=== PATIENT | male | born 1975 | race Caucasian/White ===

== ENCOUNTER 2019-04-09 16:54 | Emergency (ER) | payer OTHER, SELFPAY ==
[2019-04-09 17:43] LABS: Bilirubin Negative (Negative); Blood, Urine Negative (Negative); Clarity Clear (Clear); Glucose, Urine (Dipstick) Normal (Negative); Leukocyte Negative Leu/uL (Negative); Nitrite Negative (Negative); Protein, Urine (Dipstick) Negative (Neg-Trace); Urobilinogen Normal mg/dL (Less than 2)
[2019-04-09 17:53] LABS: Amphetamine Not Detected (NotDetected); Barbiturates Screen Not Detected (NotDetected); Benzodiazepine Screen Detected (NotDetected); Cocaine Metabolite Screen Detected (NotDetected); Medtox Control Line Valid? VALID (VALID); Medtox Reader # READER 4; Methadone Not Detected (NotDetected); Methamphetamine Not Detected (NotDetected); Opiate Screen Not Detected (NotDetected); Oxycodone Screen Not Detected (NotDetected); Phencyclidine (PCP) Not Detected (NotDetected); THC/Cannabinoid Screen Not Detected (NotDetected); Tricyclic Screen Not Detected (NotDetected)
[2019-04-09 17:59] LABS: #Basophils 0.1 thou/uL (0.0-0.2); #Eosinphils 0.1 thou/uL (0.0-0.7); #Lymphocytes 2.8 thou/uL (1.20-3.40); #Monocytes 0.7 thou/uL (0.11-0.59); #Neutrophils 10.8 thou/uL (1.40-6.50); %Basophils 0.9 % (0.0-1.0); %Eosinophils 0.5 % (0.0-10.0); %Lymphocytes 19.5 % (21.0-51.0); %Monocytes 4.5 % (0.0-10.0); %Neutrophils 74.7 % (42.0-75.0); Hemoglobin 19.2 g/dL (14.0-18.0); Mean Corpuscular HGB CONC 33.4 g/dL (32.0-36.0); Mean Corpuscular Hemoglobin 32.1 pg (27.0-31.0); Mean Corpuscular Volume 96.2 fL (78.0-98.0); Mean Platelet Volume 8.4 fL (7.4-10.4); Platelet Count 218 thou/uL (130-400); RBC Distribution Width 12.1 % (11.5-14.5); Red Blood Cell (RBC) Count 5.97 mill/uL (4.70-6.10); White Blood Cell (WBC) Count 14.4 thou/uL (4.8-10.8)
[2019-04-09 18:20] LABS: ALT (SGPT) 60 U/L (8-55); AST (SGOT) 88 U/L (5-34); Albumin 4.6 g/dL (3.5-5.0); Alkaline Phosphatase 56 U/L (40-110); Anion Gap 26 mmol/L (10-20); BUN (Urea Nitrogen) 15 mg/dL (8.9-20.6); Bilirubin, Total 0.7 mg/dL (0.2-1.2); Calc. Creatinine Clearance 0 mL/min (70-130); Calcium 9.8 mg/dL (7.8-10.44); Carbon Dioxide 19 mmol/L (22-29); Chloride 101 mmol/L (98-107); Estimated GFR-MDRD 69; Potassium 4.6 mmol/L (3.5-5.1); Protein, Total 7.6 g/dL (6.0-8.3); Sodium 141 mmol/L (136-145)
[2019-04-09 18:25] LABS: Acetaminophen Less than 6.0 mcg/mL (10.0-30.0); Alcohol 285 mg/dL (Less than 10); Lipase 30 U/L (8-78); Salicylate Less than 8.0 mg/dL (15.0-30.0)
--- NOTE | 2019-04-09 18:26 | CT ---
CT BRAIN NONCONTRAST: DATE: 04/09/2019 HISTORY: 44-year-old male status post seizure FINDINGS: There is no evidence of acute intra-axial or extra-axial hemorrhage. There is no midline shift or any other mass effect. There is no extra-axial fluid collection. The ventricles are normal in size and configuration. The tympanomastoid cavities, and the upper portions of the paranasal sinuses included in these images, are grossly clear. Calvarium is intact. IMPRESSION: Normal.
[2019-04-09 18:27] LABS: Glucose 47 mg/dL (70-105)
[2019-04-09] MEDS ORDERED: Nicotine 14 MG PATCH ONE (21:37)
[2019-04-09] MEDS ORDERED: Acetaminophen 500 MG TAB ONE (23:38)
[2019-04-10] MEDS ORDERED: Ibuprofen 200 MG TAB ONE (02:20)
[2019-04-10] MEDS ORDERED: Multivitamins, Adult 10 ML, Thiamine HCl 100 MG, Folic Acid 1 MG in Dextrose 5 %-0.45 %... IV SCH (09:00)
== END 2019-04-10 17:18 ==
LOC: EEVIPCON 16:54 → ERS 16:54
DX: F32.9 Major depressive disorder, single episode, unspecified (principal); F43.10 Post-traumatic stress disorder, unspecified; F10.129 Alcohol abuse with intoxication, unspecified; F17.210 Nicotine dependence, cigarettes, uncomplicated; Y90.8 Blood alcohol level of 240 mg/100 ml or more
CPT/HCPCS: 36415; 36416; 70450; 80053; 80306; 80307; 81003; 83690; 85025; 93005; 96361; 96365; 96366; J3411; J7042

== ENCOUNTER 2021-04-16 02:03 | Inpatient (IN) | payer OTHER ==
[~2021-04-16 02:03] MED LIST: Lorazepam 1 MG TAB PO PRN
[2021-04-16] MEDS ORDERED: Ondansetron PF 4 MG/2 ML Vial ONE (02:17)
[2021-04-16 02:18] LABS: #Basophils 0.1 thou/uL (0.0-0.2); #Eosinphils 0.1 thou/uL (0.0-0.7); #Lymphocytes 2.9 thou/uL (1.20-3.40); #Neutrophils 6.6 thou/uL (1.40-6.50); %Basophils 0.6 % (0.0-1.0); %Lymphocytes 27.3 % (21.0-51.0); %Monocytes 9.6 % (0.0-10.0); %Neutrophils 61.4 % (42.0-75.0); Hemoglobin 18.6 g/dL (14.0-18.0); Mean Corpuscular HGB CONC 34.4 g/dL (32.0-36.0); Mean Corpuscular Hemoglobin 32.7 pg (27.0-31.0); Mean Corpuscular Volume 95.3 fL (78.0-98.0); Mean Platelet Volume 7.4 fL (7.4-10.4); Platelet Count 224 thou/uL (130-400); RBC Distribution Width 12.7 % (11.5-14.5); Red Blood Cell (RBC) Count 5.69 mill/uL (4.70-6.10); White Blood Cell (WBC) Count 10.7 thou/uL (4.8-10.8)
[2021-04-16] MEDS ORDERED: Thiamine 100 MG TAB ONE (02:24)
[2021-04-16 02:47] LABS: Acetaminophen Less than 6.0 mcg/mL (10.0-30.0); Alcohol 291 mg/dL (Less than 10); Salicylate Less than 8.0 mg/dL (15.0-30.0)
[2021-04-16 03:01] LABS: ALT (SGPT) 110 U/L (8-55); AST (SGOT) 193 U/L (5-34); Albumin 4.2 g/dL (3.5-5.0); Alkaline Phosphatase 66 U/L (40-110); Anion Gap 24 mmol/L (10-20); BUN (Urea Nitrogen) 9 mg/dL (8.9-20.6); Bilirubin, Total 0.7 mg/dL (0.2-1.2); Calc. Creatinine Clearance 0 mL/min (70-130); Calcium 9.3 mg/dL (7.8-10.44); Carbon Dioxide 18 mmol/L (22-29); Chloride 98 mmol/L (98-107); Globulin 3.3 g/dL (2.4-3.5); Glucose 71 mg/dL (70-105); Protein, Total 7.5 g/dL (6.0-8.3); Sodium 136 mmol/L (136-145)
[2021-04-16 03:04] LABS: Actual Bicarbonate (HCO3v) 19 mEq/L (22-28); Analyzer IN Cardio ER; Base Excess -4.9 mEq/L (-2.0 to +3.0); Chloride (VBG) 98 mmol/L (98-106); Hemoglobin (Hb) 19.2 g/dL (13.2-17.3); Potassium (VBG) 4.05 mmol/L (3.70-5.30); Sodium 139.2 mmol/L (133-146); pH (venous) 7.37 (7.32-7.43)
[2021-04-16] MEDS ORDERED: Dextrose 50% Abboject 50 ML SYRINGE ONE (03:25)
[2021-04-16] MEDS ORDERED: Pantoprazole 40 MG VIAL ONE ×2 (03:44→10:33)
[2021-04-16] MEDS ORDERED: Acetaminophen 325 MG TAB PO PRN (04:00)
[2021-04-16] MEDS ORDERED: Electrolyte Replacement Protocol 1 EACH FS PRN (04:00)
[2021-04-16] MEDS ORDERED: Lorazepam 2 MG/ML VIAL IM PRN ×2 (04:00→08:09)
[2021-04-16] MEDS ORDERED: Ondansetron PF 4 MG/2 ML Vial IVP PRN ×2 (04:00→08:09)
[2021-04-16] MEDS ORDERED: Dextrose 5 % And 0.9 % NaCl 1,000 ML IV SCH (04:00)
[2021-04-16] MEDS ORDERED: Ondansetron ODT 4 MG TAB SL PRN (04:00)
[2021-04-16 04:13] LABS: Bilirubin Negative (Negative); Blood, Urine Negative (Negative); Clarity Clear (Clear); Glucose, Urine (Dipstick) Normal (Negative); Ketone, Urine 20 mg/dL (Negative); Leukocyte Negative Leu/uL (Negative); Nitrite Negative (Negative); Protein, Urine (Dipstick) 10 mg/dL (Neg-Trace); Specific Gravity, Urine 1.014 (1.002-1.036); Urobilinogen Normal mg/dL (Less than 2); pH, Urine 5.5 (5.0-9.0)
[2021-04-16 04:50] LABS: SARS-CoV-2 NAA Rapid Test Not Detected (NotDetected)
[2021-04-16] MEDS ORDERED: Lorazepam 1 MG TAB PO SCH (06:00)
[2021-04-16] MEDS ORDERED: Ondansetron ODT 4 MG TAB PO PRN (08:09)
[2021-04-16] MEDS ORDERED: Lorazepam 1 MG TAB PO PRN (08:09)
[2021-04-16] MEDS ORDERED: Bisacodyl 10 MG SUPP PR PRN (08:09)
[2021-04-16] MEDS ORDERED: Guaifenesin DM 100-10/5 ML UDCUP PO PRN (08:09)
[2021-04-16] MEDS ORDERED: Electrolyte Replacement Protocol 1 EACH FS SCH (08:15)
[2021-04-16] MEDS ORDERED: Electrolyte Replacement Protocol FS PRN (09:00)
[2021-04-16] MEDS ORDERED: Multivit, Therapeutic 1 TAB PO SCH (09:00)
[2021-04-16] MEDS ORDERED: Thiamine HCl 200 MG/2 ML VIAL SLOW IVP SCH ×2 (09:00)
[2021-04-16] MEDS ORDERED: Folic Acid 1 MG TAB PO SCH (09:00)
[2021-04-16] MEDS ORDERED: Iopamidol 370 76% 100 ML VIAL ONE (09:29)
[2021-04-16] MEDS ORDERED: Multivitamins, Adult 10 ML, Folic Acid 1 MG, Thiamine HCl 100 MG in Dextrose 5 %-0.45 %... IV SCH (09:45)
[2021-04-16] MEDS ORDERED: Magnesium 2 GM/50 ML 2 GM in Premix Bag 1 BAG IVPB SCH ×2 (10:00→23:00)
[2021-04-16] MEDS: Dextrose 5 %-0.45 % NaCl 1,000 ML IV SCH (10:15)
[2021-04-16] MEDS: Lorazepam 1 MG TAB PO SCH ×3 (10:15→21:09)
[2021-04-16] MEDS: Multivit, Therapeutic 1 TAB PO SCH (10:16)
[2021-04-16] MEDS: Nicotine 21 MG PATCH TD SCH (10:16)
[2021-04-16] MEDS: Pantoprazole 40 MG VIAL IVP SCH ×2 (10:16→21:10)
[2021-04-16] MEDS: Folic Acid 1 MG TAB PO SCH (10:16)
[2021-04-16] MEDS: Folic Acid 1 MG, Multivitamins, Adult 10 ML in Dextrose 5 %-0.45 % NaCl 1,000 ML IV SCH (10:18)
[2021-04-16] MEDS: Thiamine HCl 200 MG/2 ML VIAL SLOW IVP SCH (10:18)
[2021-04-16] MEDS ORDERED: Lorazepam 1 MG TAB ONE ×2 (10:33→14:37)
[2021-04-16] MEDS ORDERED: Magnesium 2 GM/50 ML BAG (IN WATER) ONE (10:33)
[2021-04-16] MEDS ORDERED: Folic Acid 1 MG TAB ONE (10:33)
[2021-04-16] MEDS: PHOS-NAK 1 PKT PACK PO SCH ×4 (10:39→23:57)
[2021-04-16 11:01] LABS: Syphilis Antibody Nonreactive (Nonreactive); Syphilis Antibody Index 0.04 S/CO (<1.00 Non-Reactive)
[2021-04-16 17:43] VITALS: BMI 27.3
[2021-04-16] MEDS ORDERED: FLU VACC QS2021-22(6MOS UP)/PF 60 MCG/0.5 ML SYRINGE IM ONE (18:00)
[2021-04-16 19:28] LABS: Anion Gap 15 mmol/L (10-20); BUN (Urea Nitrogen) 7 mg/dL (8.9-20.6); Calc. Creatinine Clearance 117 mL/min (70-130); Calcium 8.3 mg/dL (7.8-10.44); Carbon Dioxide 24 mmol/L (22-29); Chloride 101 mmol/L (98-107); Glucose 151 mg/dL (70-105); Potassium 3.5 mmol/L (3.5-5.1); Sodium 136 mmol/L (136-145)
[2021-04-16 19:38] LABS: Magnesium 1.9 mg/dL (1.6-2.6); Phosphorus 1.7 mg/dL (2.3-4.7)
[2021-04-17] MEDS: Lorazepam 1 MG TAB PO SCH ×4 (01:52→20:51)
[2021-04-17] MEDS ORDERED: Lorazepam 1 MG TAB PO PRN ×2 (04:00→08:08)
[2021-04-17] MEDS: Dextrose 5 %-0.45 % NaCl 1,000 ML IV SCH ×3 (04:03→15:26)
[2021-04-17] MEDS ORDERED: Lorazepam 1 MG TAB PO SCH (06:00)
[2021-04-17] MEDS: Folic Acid 1 MG TAB PO SCH (08:06)
[2021-04-17] MEDS: Nicotine 21 MG PATCH TD SCH (08:06)
[2021-04-17] MEDS: PHOS-NAK 1 PKT PACK PO SCH ×3 (08:06→20:51)
[2021-04-17] MEDS: Pantoprazole 40 MG VIAL IVP SCH ×2 (08:06→20:51)
[2021-04-17] MEDS: Multivit, Therapeutic 1 TAB PO SCH (08:06)
[2021-04-17] MEDS: Amlodipine 10 MG TAB PO SCH (09:12)
[2021-04-17] MEDS: chlordiazePOXIDE HCl 25 MG CAP PO SCH ×3 (10:00→20:51)
[2021-04-17] MEDS: Thiamine HCl 200 MG/2 ML VIAL SLOW IVP SCH (10:00)
[2021-04-17] MEDS: Lorazepam 2 MG/ML VIAL SLOW IVP PRN ×2 (12:22→17:49)
[2021-04-17] MEDS: Folic Acid 1 MG, Multivitamins, Adult 10 ML in Dextrose 5 %-0.45 % NaCl 1,000 ML IV SCH (12:51)
[2021-04-17] MEDS ORDERED: PROPOFOL 200 MG/20 ML VIAL ONE (15:01)
[2021-04-17] MEDS ORDERED: Lidocaine 1% PF 5 ML VIAL ONE (15:01)
[2021-04-17 17:12] LABS: ALT (SGPT) 112 U/L (8-55); AST (SGOT) 203 U/L (5-34); Albumin 3.6 g/dL (3.5-5.0); Alkaline Phosphatase 63 U/L (40-110); Anion Gap 12 mmol/L (10-20); BUN (Urea Nitrogen) 4 mg/dL (8.9-20.6); Bilirubin, Total 1.1 mg/dL (0.2-1.2); Calc. Creatinine Clearance 118 mL/min (70-130); Calcium 8.4 mg/dL (7.8-10.44); Carbon Dioxide 27 mmol/L (22-29); Chloride 101 mmol/L (98-107); Globulin 2.8 g/dL (2.4-3.5); Glucose 125 mg/dL (70-105); Phosphorus 2.2 mg/dL (2.3-4.7); Potassium 3.5 mmol/L (3.5-5.1); Protein, Total 6.4 g/dL (6.0-8.3); Sodium 136 mmol/L (136-145)
[2021-04-17 17:20] LABS: #Lymphocytes 0.8 thou/uL (1.20-3.40); #Monocytes 0.3 thou/uL (0.11-0.59); #Neutrophils 3.1 thou/uL (1.40-6.50); %Basophils 0.2 % (0.0-1.0); %Eosinophils 1.1 % (0.0-10.0); %Lymphocytes 19.7 % (21.0-51.0); %Monocytes 6.9 % (0.0-10.0); %Neutrophils 72.2 % (42.0-75.0); Hemoglobin 16.5 g/dL (14.0-18.0); Mean Corpuscular HGB CONC 34.9 g/dL (32.0-36.0); Mean Corpuscular Hemoglobin 33.9 pg (27.0-31.0); Mean Corpuscular Volume 97.1 fL (78.0-98.0); Mean Platelet Volume 7.3 fL (7.4-10.4); Platelet Count 102 thou/uL (130-400); RBC Distribution Width 12.5 % (11.5-14.5); Red Blood Cell (RBC) Count 4.87 mill/uL (4.70-6.10); White Blood Cell (WBC) Count 4.3 thou/uL (4.8-10.8)
[2021-04-17 17:21] LABS: Platelet Morphology Comment Appears Decreased; RBC Morphology Normal
[2021-04-18] MEDS: Lorazepam 2 MG/ML VIAL SLOW IVP PRN ×5 (00:08→23:58)
[2021-04-18] MEDS: Lorazepam 1 MG TAB PO SCH (02:45)
[2021-04-18] MEDS ORDERED: Lorazepam 1 MG TAB PO PRN ×2 (04:00→08:08)
[2021-04-18] MEDS ORDERED: Lorazepam 0.5 MG TAB PO SCH (06:00)
[2021-04-18] MEDS ORDERED: Potassium Chloride 20 MEQ TAB PO SCH (07:00)
[2021-04-18 07:34] LABS: #Lymphocytes 0.9 thou/uL (1.20-3.40); #Monocytes 0.4 thou/uL (0.11-0.59); #Neutrophils 2.2 thou/uL (1.40-6.50); %Basophils 0.7 % (0.0-1.0); %Eosinophils 1.2 % (0.0-10.0); %Lymphocytes 25.7 % (21.0-51.0); %Monocytes 11.1 % (0.0-10.0); %Neutrophils 61.3 % (42.0-75.0); Hemoglobin 15.5 g/dL (14.0-18.0); Mean Corpuscular HGB CONC 35.1 g/dL (32.0-36.0); Mean Corpuscular Hemoglobin 34.2 pg (27.0-31.0); Mean Corpuscular Volume 97.5 fL (78.0-98.0); Mean Platelet Volume 8.1 fL (7.4-10.4); Platelet Count 97 thou/uL (130-400); RBC Distribution Width 12.5 % (11.5-14.5); Red Blood Cell (RBC) Count 4.52 mill/uL (4.70-6.10); White Blood Cell (WBC) Count 3.5 thou/uL (4.8-10.8)
[2021-04-18 07:48] LABS: ALT (SGPT) 118 U/L (8-55); AST (SGOT) 200 U/L (5-34); Albumin 3.3 g/dL (3.5-5.0); Alkaline Phosphatase 65 U/L (40-110); Anion Gap 13 mmol/L (10-20); BUN (Urea Nitrogen) Less than 4 mg/dL (8.9-20.6); Bilirubin, Total 0.7 mg/dL (0.2-1.2); Calc. Creatinine Clearance 128 mL/min (70-130); Calcium 8.5 mg/dL (7.8-10.44); Carbon Dioxide 25 mmol/L (22-29); Chloride 103 mmol/L (98-107); Globulin 2.5 g/dL (2.4-3.5); Glucose 97 mg/dL (70-105); Potassium 3.5 mmol/L (3.5-5.1); Protein, Total 5.8 g/dL (6.0-8.3); Sodium 137 mmol/L (136-145)
[2021-04-18] MEDS: PHOS-NAK 1 PKT PACK PO SCH (08:46)
[2021-04-18] MEDS: Folic Acid 1 MG TAB PO SCH (08:47)
[2021-04-18] MEDS: Dextrose 5 %-0.45 % NaCl 1,000 ML IV SCH ×3 (08:48→20:13)
[2021-04-18] MEDS: Multivit, Therapeutic 1 TAB PO SCH (08:48)
[2021-04-18] MEDS: Pantoprazole 40 MG VIAL IVP SCH ×2 (08:48→20:10)
[2021-04-18] MEDS: Amlodipine 10 MG TAB PO SCH (08:48)
[2021-04-18] MEDS: Nicotine 21 MG PATCH TD SCH (08:48)
[2021-04-18] MEDS: Lorazepam 0.5 MG TAB PO SCH ×3 (08:48→20:11)
[2021-04-18] MEDS: chlordiazePOXIDE HCl 25 MG CAP PO SCH ×3 (09:44→20:18)
[2021-04-18] MEDS: Thiamine HCl 200 MG/2 ML VIAL SLOW IVP SCH (11:19)
[2021-04-18] MEDS: Folic Acid 1 MG, Multivitamins, Adult 10 ML in Dextrose 5 %-0.45 % NaCl 1,000 ML IV SCH (11:40)
[2021-04-18] MEDS: Acetaminophen 325 MG TAB PO PRN (23:57)
[2021-04-19] MEDS: Lorazepam 0.5 MG TAB PO SCH (02:42)
[2021-04-19] MEDS ORDERED: Lorazepam 0.5 MG TAB PO PRN ×2 (06:00→08:08)
[2021-04-19 07:08] LABS: #Basophils 0.1 thou/uL (0.0-0.2); #Eosinphils 0.1 thou/uL (0.0-0.7); #Lymphocytes 1.5 thou/uL (1.20-3.40); #Monocytes 0.5 thou/uL (0.11-0.59); #Neutrophils 3.9 thou/uL (1.40-6.50); %Lymphocytes 24.7 % (21.0-51.0); %Monocytes 7.5 % (0.0-10.0); %Neutrophils 64.8 % (42.0-75.0); Hemoglobin 16.1 g/dL (14.0-18.0); Mean Corpuscular HGB CONC 33.6 g/dL (32.0-36.0); Mean Corpuscular Hemoglobin 33.2 pg (27.0-31.0); Mean Corpuscular Volume 98.9 fL (78.0-98.0); Mean Platelet Volume 8.4 fL (7.4-10.4); Platelet Count 118 thou/uL (130-400); RBC Distribution Width 12.8 % (11.5-14.5); Red Blood Cell (RBC) Count 4.85 mill/uL (4.70-6.10)
[2021-04-19 07:22] LABS: ALT (SGPT) 152 U/L (8-55); AST (SGOT) 212 U/L (5-34); Albumin 3.5 g/dL (3.5-5.0); Alkaline Phosphatase 80 U/L (40-110); Anion Gap 12 mmol/L (10-20); BUN (Urea Nitrogen) 5 mg/dL (8.9-20.6); Bilirubin, Total 0.5 mg/dL (0.2-1.2); Calc. Creatinine Clearance 119 mL/min (70-130); Calcium 9.5 mg/dL (7.8-10.44); Carbon Dioxide 23 mmol/L (22-29); Chloride 106 mmol/L (98-107); Globulin 2.9 g/dL (2.4-3.5); Glucose 100 mg/dL (70-105); Potassium 3.7 mmol/L (3.5-5.1); Protein, Total 6.4 g/dL (6.0-8.3); Sodium 137 mmol/L (136-145)
[2021-04-19] MEDS: Dextrose 5 %-0.45 % NaCl 1,000 ML IV SCH ×2 (08:00→16:19)
[2021-04-19] MEDS: Pantoprazole 40 MG VIAL IVP SCH ×2 (08:51→21:29)
[2021-04-19] MEDS: Folic Acid 1 MG TAB PO SCH (08:51)
[2021-04-19] MEDS: Multivit, Therapeutic 1 TAB PO SCH (08:51)
[2021-04-19] MEDS: Nicotine 21 MG PATCH TD SCH (08:51)
[2021-04-19] MEDS: Amlodipine 10 MG TAB PO SCH (08:51)
[2021-04-19] MEDS: Thiamine 100 MG TAB PO SCH (08:51)
[2021-04-19] MEDS ORDERED: Thiamine 100 MG TAB PO SCH (09:00)
[2021-04-19] MEDS: chlordiazePOXIDE HCl 25 MG CAP PO SCH ×3 (09:39→21:29)
[2021-04-19] MEDS: Folic Acid 1 MG, Multivitamins, Adult 10 ML in Dextrose 5 %-0.45 % NaCl 1,000 ML IV SCH (10:07)
[2021-04-19] MEDS: Thiamine HCl 200 MG/2 ML VIAL SLOW IVP SCH (10:08)
[2021-04-19] MEDS: Acetaminophen 325 MG TAB PO PRN (21:29)
[2021-04-19 23:11] LABS: SARS-CoV-2 PCR by NAA Not Detected (NotDetected)
[2021-04-20 07:51] LABS: #Basophils 0.1 thou/uL (0.0-0.2); #Eosinphils 0.2 thou/uL (0.0-0.7); #Lymphocytes 1.6 thou/uL (1.20-3.40); #Monocytes 0.6 thou/uL (0.11-0.59); #Neutrophils 4.1 thou/uL (1.40-6.50); %Basophils 0.9 % (0.0-1.0); %Eosinophils 2.7 % (0.0-10.0); %Lymphocytes 24.2 % (21.0-51.0); %Monocytes 9.7 % (0.0-10.0); %Neutrophils 62.5 % (42.0-75.0); Mean Corpuscular HGB CONC 33.3 g/dL (32.0-36.0); Mean Corpuscular Hemoglobin 33.1 pg (27.0-31.0); Mean Corpuscular Volume 99.2 fL (78.0-98.0); Mean Platelet Volume 8.6 fL (7.4-10.4); Platelet Count 114 thou/uL (130-400); RBC Distribution Width 12.8 % (11.5-14.5); Red Blood Cell (RBC) Count 4.25 mill/uL (4.70-6.10); White Blood Cell (WBC) Count 6.5 thou/uL (4.8-10.8)
[2021-04-20 08:05] LABS: ALT (SGPT) 124 U/L (8-55); AST (SGOT) 132 U/L (5-34); Alkaline Phosphatase 57 U/L (40-110); Anion Gap 12 mmol/L (10-20); BUN (Urea Nitrogen) 9 mg/dL (8.9-20.6); Bilirubin, Total 0.4 mg/dL (0.2-1.2); Calc. Creatinine Clearance 118 mL/min (70-130); Calcium 8.7 mg/dL (7.8-10.44); Carbon Dioxide 25 mmol/L (22-29); Chloride 105 mmol/L (98-107); Globulin 2.3 g/dL (2.4-3.5); Glucose 94 mg/dL (70-105); Potassium 3.7 mmol/L (3.5-5.1); Protein, Total 5.3 g/dL (6.0-8.3); Sodium 138 mmol/L (136-145)
[2021-04-20] MEDS: Thiamine 100 MG TAB PO SCH (08:51)
[2021-04-20] MEDS: Multivit, Therapeutic 1 TAB PO SCH (08:51)
[2021-04-20] MEDS: Amlodipine 10 MG TAB PO SCH (08:51)
[2021-04-20] MEDS: Folic Acid 1 MG TAB PO SCH (08:51)
[2021-04-20] MEDS: Pantoprazole 40 MG VIAL IVP SCH ×2 (08:51→20:10)
[2021-04-20] MEDS: Nicotine 21 MG PATCH TD SCH (08:51)
[2021-04-20] MEDS: chlordiazePOXIDE HCl 25 MG CAP PO SCH ×3 (09:33→20:10)
[2021-04-21 08:00] LABS: #Basophils 0.1 thou/uL (0.0-0.2); #Eosinphils 0.2 thou/uL (0.0-0.7); #Lymphocytes 2.2 thou/uL (1.20-3.40); #Monocytes 0.9 thou/uL (0.11-0.59); #Neutrophils 6.3 thou/uL (1.40-6.50); %Basophils 0.9 % (0.0-1.0); %Eosinophils 1.6 % (0.0-10.0); %Lymphocytes 23.1 % (21.0-51.0); %Monocytes 9.3 % (0.0-10.0); %Neutrophils 65.1 % (42.0-75.0); Hemoglobin 15.3 g/dL (14.0-18.0); Mean Corpuscular HGB CONC 33.6 g/dL (32.0-36.0); Mean Corpuscular Hemoglobin 33.4 pg (27.0-31.0); Mean Corpuscular Volume 99.2 fL (78.0-98.0); Mean Platelet Volume 8.5 fL (7.4-10.4); Platelet Count 120 thou/uL (130-400); RBC Distribution Width 12.9 % (11.5-14.5); White Blood Cell (WBC) Count 9.6 thou/uL (4.8-10.8)
[2021-04-21] MEDS: Nicotine 21 MG PATCH TD SCH (08:26)
[2021-04-21] MEDS: Multivit, Therapeutic 1 TAB PO SCH (08:26)
[2021-04-21] MEDS: Pantoprazole 40 MG VIAL IVP SCH (08:26)
[2021-04-21] MEDS: Folic Acid 1 MG TAB PO SCH (08:26)
[2021-04-21] MEDS: Amlodipine 10 MG TAB PO SCH (08:26)
[2021-04-21] MEDS: Thiamine 100 MG TAB PO SCH (08:26)
[2021-04-21] MEDS: chlordiazePOXIDE HCl 25 MG CAP PO SCH (08:26)
[2021-04-21 08:45] LABS: ALT (SGPT) 150 U/L (8-55); AST (SGOT) 146 U/L (5-34); Albumin 3.9 g/dL (3.5-5.0); Alkaline Phosphatase 62 U/L (40-110); Anion Gap 15 mmol/L (10-20); BUN (Urea Nitrogen) 9 mg/dL (8.9-20.6); Bilirubin, Total 0.4 mg/dL (0.2-1.2); Calc. Creatinine Clearance 115 mL/min (70-130); Calcium 9.6 mg/dL (7.8-10.44); Carbon Dioxide 24 mmol/L (22-29); Chloride 101 mmol/L (98-107); Glucose 94 mg/dL (70-105); Potassium 3.8 mmol/L (3.5-5.1); Protein, Total 6.9 g/dL (6.0-8.3); Sodium 136 mmol/L (136-145)
[2021-04-21 09:29] VITALS: BP 150/108; TEMP 98.6
== END 2021-04-21 10:09 | disposition home or self-care (01) | DRG 368 ==
LOC: ERS 02:03 → ERHOLD 03:38 → T4-A 17:27
PROVIDERS: ADMIT Internal Medicine; ATTEND Internal Medicine
PROC: HZ2ZZZZ Detoxification Services for Substance Abuse Treatment (ICD-10-PCS; 2021-04-16)
PROC: 0DB48ZX Excision of Esophagogastric Junction, Via Natural or Artificial Opening Endoscopic, Diagnostic (ICD-10-PCS; principal; 2021-04-17)
PROC: 0DB78ZX Excision of Stomach, Pylorus, Via Natural or Artificial Opening Endoscopic, Diagnostic (ICD-10-PCS; 2021-04-17)
DX: K20.81 Other esophagitis with bleeding (principal); K29.61 Other gastritis with bleeding; F10.239 Alcohol dependence with withdrawal, unspecified; K76.6 Portal hypertension; E87.2 Acidosis; Z20.822 Contact with and (suspected) exposure to COVID-19; K31.89 Other diseases of stomach and duodenum; F10.20 Alcohol dependence, uncomplicated; F17.210 Nicotine dependence, cigarettes, uncomplicated; F14.10 Cocaine abuse, uncomplicated; F12.10 Cannabis abuse, uncomplicated; E16.2 Hypoglycemia, unspecified; E83.39 Other disorders of phosphorus metabolism; E86.0 Dehydration; F10.229 Alcohol dependence with intoxication, unspecified; N18.2 Chronic kidney disease, stage 2 (mild); I12.9 Hypertensive chronic kidney disease with stage 1 through stage 4 chronic kidney disease, or unspecified chronic kidney disease; D63.1 Anemia in chronic kidney disease; E87.6 Hypokalemia; K44.9 Diaphragmatic hernia without obstruction or gangrene; Z28.21 Immunization not carried out because of patient refusal
CPT/HCPCS: 36415; 36416; 74177; 80053; 80307; 81003; 82010; 82805; 83605; 83735; 84100; 85025; 86780; 86850; 86900; 86901; 88305; 88312; 93005; C9113; J2060; J2405; J2704; J3411; J3475; J7042; Q9967; U0002; U0003; U0005

== ENCOUNTER 2021-04-23 06:00 | Emergency (ER) | payer OTHER | END 2021-04-23 08:09 | disposition left against medical advice (07) | LOC: ERS 06:00 | DX: Z53.21 Procedure and treatment not carried out due to patient leaving prior to being seen by health care provider (principal) ==